=== PATIENT | female | born 1975 | race Hispanic/Latino ===

== ENCOUNTER 2017-03-25 13:18 | Outpatient (CLI) | payer OTHER | END 2017-03-25 22:50 | disposition home or self-care (01) | LOC: MRI 13:18 | DX: D13.4 Benign neoplasm of liver (principal) | CPT/HCPCS: A9576 ==

== ENCOUNTER 2020-07-12 08:51 | Outpatient (CLI) | payer OTHER | END 2020-07-12 21:43 | disposition home or self-care (01) | LOC: MRI 08:51 | PROVIDERS: ATTEND Nurse Practitioner Family | DX: K76.9 Liver disease, unspecified (principal) | CPT/HCPCS: A9576 ==